=== PATIENT | male | born 1960 | race Caucasian/White ===

== ENCOUNTER → 2021-09-13 | Outpatient (CLI) | payer OTHER, SELFPAY ==
--- NOTE | 2021-09-13 14:14 | MRI_ITS ---
STUDY: MRI LUMBAR SPINE WITH AND WITHOUT CONTRAST REASON FOR EXAM: Male, 61 years old. Sharp pain in the lower back and right leg. TECHNIQUE: Standardized fat and water weighted pulse sequences were obtained in the sagittal and axial planes. 23 mL of IV Dotarem was administered for the contrast portion of the examination. COMPARISON: None FINDINGS: T11-T12 and T12-L1: (Sagittal only). Normal endplates. Normal disc height, hydration and morphology. No ventral extradural defects. Normal central canal and bilateral intervertebral neural foramina. Normal lumbar lordosis. There is no substantial scoliosis. Normal conus medullaris that terminates at the T12-L1 disc space level. L1-2: Normal endplates. Normal disc height, hydration and morphology. Normal bilateral facet joints. Normal central canal and bilateral lateral recesses. Normal bilateral intervertebral neural foramina. L2-3: Normal endplates. Normal disc height with mild loss of disc hydration. Prominent dorsal epidural lipomatosis. Normal facet joints. Mild flattening central canal stenosis with an AP canal diameter of 8 mm. The transverse canal diameter is 2 cm wide. Normal bilateral lateral recesses. Normal bilateral intervertebral neural foramina. L3-4: Normal endplates. Normal disc height, hydration and morphology. Mild asymmetric degenerative facet arthropathy. Prominent dorsal epidural lipomatosis causing moderate flattening central canal stenosis with an AP canal diameter of 7 mm. Normal bilateral lateral recesses. Normal bilateral intervertebral neural foramina. L4-5: Normal endplates. Normal disc height, hydration and morphology. Moderately pronounced left degenerative facet hypertrophy. Moderate right degenerative facet arthropathy. Moderately pronounced central canal stenosis with an AP canal diameter of 6 mm. Normal bilateral lateral recesses. Normal bilateral intervertebral neural foramina. L5-S1: Minimal asymmetric MODIC type II degenerative vertebral marrow fatty changes underneath the vertebral endplates. Prominent right lateral extradural defect is extruded disc fragment surrounded by enhancing postoperative fibrosis. This is displacing the right S1 nerve root sleeve. Mild asymmetric central canal stenosis with an AP canal diameter of 8 mm. Normal left lateral recess. Mild asymmetric degenerative facet arthropathy. Mild stenosis of the left intervertebral neural foramen. Normal right intervertebral neural foramen. Normal visualized sacral ala. Normal visualized paraspinous soft tissue structures. No abnormal enhancing lesions intradurally but there is enhancing postoperative fibrosis around the nonenhancing right lateral extradural defect at L5-S1 disc space level suspicious for extruded and sequestered disc fragment. MRI/Spine Lumbar W/WO Contrast IMPRESSION: 1. Prominent nonenhancing right lateral extradural defect at L5-S1 disc space level is recurrent extruded and sequestered disc fragment surrounded by enhancing postoperative fibrosis. 2. Moderately pronounced central canal stenosis at L4-L5 disc space level with an AP canal diameter of 6 mm. 3. Moderate flattening central canal stenosis at L3-L4 disc space level with an AP canal diameter of 7 mm secondary to prominent dorsal epidural lipomatosis more than developmentally short pedicles. Electronically Signed: Waqar Hannon MD at 16:41 EDT ,
== END | disposition home or self-care (01) ==
PROVIDERS: PCP Family Medicine; Visit Provider Family Medicine
DX: M43.26 Fusion of spine, lumbar region (principal); M51.16 Intervertebral disc disorders with radiculopathy, lumbar region
CPT/HCPCS: 72158; A9575

== ENCOUNTER → 2022-09-11 | Outpatient (CLI) | payer OTHER, SELFPAY ==
--- NOTE | 2022-09-11 07:48 | MRI_ITS ---
STUDY: MRI ABDOMEN WITH AND WITHOUT CONTRAST REASON FOR EXAM: Male, 62 years old. Neoplasm of uncertain behavior, left renal pelvis. Abnormality left kidney seen on biofuels research scientist images of the recent MRI of the lumbar spine TECHNIQUE: Standardized fat and water weighted pulse sequences were obtained in all 3 orthogonal planes post contrast administration. IV 24ml clariscan was administered for the contrast portion of the examination. COMPARISON: None. FINDINGS: The visualized lung bases are unremarkable. The visualized portions of the heart are within normal limits. Normal visualized liver. Normal visualized gallbladder and extrahepatic biliary system. Normal visualized spleen. Normal visualized pancreas. Normal bilateral adrenal glands. The right kidney is of normal size and cortical thickness. There is appearance of dilated calyces on the precontrast images without ureteral dilatation. These do not enhance following contrast suggesting parapelvic cysts. Similarly, there is questionable pelvocaliectasis of left kidney again without enhancement consistent with parapelvic renal cysts. There is also a focus in the upper pole cortex of left kidney which demonstrates fluid signal intensity on all sequences and demonstrates no evidence of enhancement on the post contrast imaging consistent with small irregular cyst. Normal visualized stomach. Normal normal visualized small intestine. Normal normal visualized colon. There are surgical clips in the region of the appendix consistent with a prior appendectomy. Normal abdominal aorta. Normal inferior vena cava. Normal retroperitoneum. Normal abdominal wall. Normal osseous structures. MRI/MRI Abd WITH and W/O Contrast IMPRESSION: 1. Left upper pole cortical cyst as well as bilateral parapelvic renal cysts. There is no evidence of solid mass to suggest neoplasm. There is no hydronephrosis. 2. Otherwise normal visualized abdominal structures. Electronically Signed: Edouard Altamirano DO at 19:47 EDT ,
[2022-09-11 08:33] LABS: CREATININE FINGERSTICK < 0.9 mg/dL (0.70-1.30); EGFR FINGERSTICK > 60.0000 mL/min (>60)
== END | disposition home or self-care (01) ==
PROVIDERS: PCP Family Medicine; Referring Provider Family Medicine; Visit Provider Family Medicine
DX: D41.12 Neoplasm of uncertain behavior of left renal pelvis (principal); R93.41 Abnormal radiologic findings on diagnostic imaging of renal pelvis, ureter, or bladder
CPT/HCPCS: 74183; A9575